=== PATIENT | male | born 1995 | race Caucasian/White ===

== ENCOUNTER 2018-12-01 13:47 | Emergency (ER) | payer OTHER ==
[2018-12-01] MEDS ORDERED: IBUPROFEN 600 MG TABLET (FP) PO ONE ×2 (13:58→14:24)
--- NOTE | 2018-12-01 14:07 | PDOC ---
Attending Attestation - Resident Resident Name: Anirudh Flores - ED Attending Attestation I have performed the following: I have examined & evaluated the patient, The case was reviewed & discussed with the resident, I agree w/resident's findings & plan - HPI HPI: 12/01/18 14:05 23 y/o male injured his right ankle yesterday. Able to walk on it. More painful. Swollen and tender. Has not taken anything, but has applied ice to area. Was playing a sport yesterday and twisted ankle. - Physicial Exam PE: 12/01/18 14:06 VSS Heart: RRR w/o murmur Lungs: CTA b/l EXT right ankle swollen, tender, full ROM. pulses 2+/4 b/l in LE, no focal deficits noted, no ecchymosis noted, tender to lateral malleolus noted Neuro: grossly intact, no compartment syndrome noted 12/01/18 14:44 - Medical Decision Making 12/01/18 14:44 X-ray right ankle: posterior malleolar fracture, subtle Will continue ice, Motrin, rest posterior splint and non weight bearing with crutches Follow up with Orthopedics If worsen return to ER Final Dx; Right malleolar fracture Plan and case discussed with Dr. Flores, resident
[2018-12-01 14:14] VITALS: BP 137/90; PULSE 95; TEMP 99.8; BMI 31.6
--- NOTE | 2018-12-01 14:29 | PDOC ---
History of Present Illness - General Chief Complaint: Injury Stated Complaint: INJURED RIGHT ANKLE PLAYING PAINTBALL YESTERDAY Time Seen by Provider: 12/01/18 13:52 - History of Present Illness Initial Comments: 12/01/18 14:24 23m no pmh presents tot he ed with right ankle pain after inverting it last night. Was able to bear weight with discomfort. Past History - Past Medical History Allergies/Adverse Reactions: Allergies Allergy/AdvReac Type Severity Reaction Status Date / Time No Known Allergies Allergy Unverified 12/01/18 13:48 Home Medications: Ambulatory Orders NK [No Known Home Medication] 12/01/18 COPD: No Other medical history: DENIES - Suicide/Smoking/Psychosocial Hx Smoking History: Never smoked Hx Alcohol Use: Yes (SOCIAL) Drug/Substance Use Hx: No Review of Systems - Review of Systems Musculoskeletal: Yes: See HPI All Other Systems: Reviewed and Negative *Physical Exam - Vital Signs Last Vital Signs Temp Pulse Resp BP Pulse Ox 99.8 F H 95 H 16 137/90 99 12/01/18 13:48 12/01/18 13:48 12/01/18 13:48 12/01/18 13:48 12/01/18 13:48 - Physical Exam General Appearance: Yes: Nourished, Appropriately Dressed, Apparent Distress Extremity: positive: Normal Capillary Refill, Normal Inspection, Tender ( lateral malleolus of the right ankle is tender. ), Swelling (R lateral malleolus.). negative: Normal Range of Motion (Able to passively, gently range the ankle with minimal pain, pain worse when bearing weight. ) Integumentary: positive: Normal Color, Dry, Warm Neurologic: positive: Fully Oriented, Alert, Normal Mood/Affect ED Treatment Course - RADIOLOGY Radiology Studies Ordered: Category Date Time Status ANKLE-RIGHT [RAD] Stat Radiology 12/01/18 13:57 Taken Medical Decision Making - Medical Decision Making 12/01/18 14:28 No fracture on xray. OK to send home wioth air cast and follow up . *DC/Admit/Observation/Transfer Diagnosis at time of Disposition: Right ankle sprain - Discharge Dispostion Disposition: HOME Condition at time of disposition: Stable Decision to Admit order: No - Referrals - Patient Instructions Printed Discharge Instructions: DI for Ankle Sprain Additional Instructions: Come back to the emergency department for any new, worsening or concerning symptom. Follow up with your primary care physician within the week. - Post Discharge Activity
== END 2018-12-01 15:26 | disposition home or self-care (01) ==
LOC: FER 13:47
DX: S93.401A Sprain of unspecified ligament of right ankle, initial encounter (principal); X58.XXXA Exposure to other specified factors, initial encounter; Y93.89 Activity, other specified; Y92.89 Other specified places as the place of occurrence of the external cause
CPT/HCPCS: 73610-TC-RT-FY; 99281-25